=== PATIENT | female | born 1940 | race Caucasian/White ===

== ENCOUNTER 2024-06-26 01:40 | Emergency (ER) | payer OTHER, SELFPAY ==
[2024-06-26 01:51] VITALS: BP 160/99; BMI 30.9
--- NOTE | 2024-06-26 03:05 | ED.GENMED ---
History of Present Illness
General
Chief Complaint: Swelling
Source: patient
Exam Limitations: none
Time Seen by Provider: 06/26/24 02:35
Nursing documentation reviewed up to this point in time: agreed with
History of Present Illness
History of Present Illness:
This is an 83-year-old woman who has history of hypertension, hyperlipidemia, hypothyroidism, chronic bilateral lower extremity edema. She underwent right total hip replacement on June 20 at [facility]. Returned home the
following day June 21 and has been receiving physical therapy at home with initial visit June 22 and then again June 24. Patient notes increase in bilateral lower extremity edema right leg greater than left and she was
concerned tonight when she noticed some dark purple and red bruising to her right anterior knee and right anterior lateral lower leg after taking her compression stockings off this evening. She has had mild right hip pain but overall postop pain
has been well-controlled. She denies cough nor shortness of breath, no chest pain or palpitations, no abdominal nor back pain.
She has not had a fall.
She does note chronic bilateral lower extremity edema but no history of CAD nor CHF nor pulmonary hypertension.
She has been taking full-strength aspirin twice daily for DVT prophylaxis postop.
Past History
Past History
ED Past Medical History: GERD, HTN, Hypercholesterolemia, Hypothyroidism and Other; Negative IDDM or NIDDM
ED Past Surgical History: Cholecystectomy, Gynecological (Hysterectomy) and Orthopedic (Right total hip replacement May 2024)
Social History
Tobacco: Non-smoker
Alcohol: None
Personal:
Living: with family
Employment: Retired
Family History
Family History: Other (Father with NC at 54 mother with coronary disease at 78)
Phy Exam
Physical Exam
Physical Exam:
GENERAL: 83-year-old woman appears her stated age, awake and alert, pleasant, appears in no acute distress.
EYE: anicteric
NECK: Supple, nontender, no meningismus, no significant adenopathy. No JVD.
ENT: oral mucosa is moist. No rhinorrhea.
CARDIAC: Regular rate and rhythm. no murmur.
LUNGS: Clear breath sounds bilaterally, no acute respiratory distress, no wheezes/rales/rhonchi
ABDOMEN: Soft, nondistended, without focal tenderness, no r/g, no cvat. normoactive BS.
NEUROLOGICAL: Alert and oriented x3, no focal neuro deficits.
SKIN: Warm and dry, normal color, right anterolateral proximal thigh surgical dressing is dry and intact.
MUSCULOSKELETAL: There is +4 pitting edema globally to the bilateral lower extremities. There is dark purple ecchymotic patch right anterior knee that extends to the anterolateral lower leg. There are few tiny intact vesicles right anterior lower
leg. No palpable heat. No palpable tenderness to the knee nor lower leg. Mild tenderness about the right hip. Peripheral pulses are full and equal b/l.
PSYCH: Normal and appropriate interaction.
Scores
Heart Failure Risk
Heart Failure Risk Score: Not Applicable
Course
Orders/Labs/Results
Orders:
Orders
06/26/24 02:44
US Periph Venous LOWER Ext Agusto Urgent
Comment:
Reason For Exam: post op b/l LE edema R>L
Vital Signs
Initial and Last Documented VS:
Initial Vital Signs
Temp Pulse Resp BP Pulse Ox
98.3 F 84 16 160/99 98
06/26/24 01:51 06/26/24 01:51 06/26/24 01:51 06/26/24 01:51 06/26/24 01:51
Last Documented Vital Signs
Temp Pulse Resp BP Pulse Ox
98.3 F 84 16 160/99 98
06/26/24 01:51 06/26/24 01:51 06/26/24 01:51 06/26/24 01:51 06/26/24 01:51
MDM/Problems Addressed
Differential Diagnosis Includes:
Patient presents with significant bilateral lower extremity edema that appears somewhat chronic such as lymphedema in nature which may be exacerbated by recent postop right total hip replacement.
As she is recently postop must consider DVT thus will check DVT study bilateral lower extremities.
Ecchymosis right lower leg is postop in nature. She has not had a fall. Overall appears comfortable, denies increase in pain.
Nothing in history nor exam to suggest acute blood loss/symptomatic anemia and nothing to suggest acute bleeding.
Will check DVT study and if negative will plan for compression stockings bilateral lower extremities.
Chronic conditions affecting care: Other (Chronic edema/lymphedema bilateral lower extremities)
*Radiology
Radiology exam reviewed: other (Venous Doppler bilateral lower extremities negative for DVT. Large All's cyst posterior popliteal on the left.)
*Pulse Oximetry
Patient hypoxic: no
*Critical Care Note
Total Time (30-74mins, 75-104mins- exclusive of procedures): Not Applicable
ED Attending Note
-
Portions of this chart may have been created with voice recognition software.� Occasional wrong word or��sound alike� substitutions may have occurred due to the inherent limitations of voice recognition software.
Discharge Plan
Departure
Patient Disposition: Home (Routine Discharge)
Date of Disposition: 06/26/24
Time of Disposition: 04:20
Patient with high blood pressure during this ER visit?: No
Condition: Good
Discharge Problem:
postoperative peripheral edema
Instructions: Swelling, Lymphedema (DC)
Prescriptions:
No Action
potassium chloride 10 MEQ capsule, extended release
10 meq PO DAILY
nifedipine 30 MG tablet extended release
30 mg PO DAILY
levothyroxine 100 MCG tablet
75 mcg PO DAILY
atenolol 50 MG tablet
50 mg PO DAILY
cholecalciferol (vitamin D3) 2,000 UNITS tablet
1,000 unit PO DAILY
atenolol 25 MG tablet
25 mg PO DAILY
Benefiber Sugar Free (dextrin) 1 EACH powder in packet
1 ea PO DAILY PRN (Reason: cibstuoatuib)
pantoprazole 40 MG tablet,delayed release (DR/EC)
40 mg PO BID Qty: 20 0RF
tramadol 50 mg Tablet
50 mg PO Q4HPRN PRN (Reason: moderate pain)
acetaminophen 650 mg Tablet Extended Release
650 mg PO Q8H
docusate sodium 100 mg Capsule
100 mg PO BID
aspirin [Aspirin Childrens] 81 mg Tablet,Chewable
81 mg PO BID
gabapentin 100 mg Capsule
200 mg PO HS
alum-mag hydroxide-simeth 200-200-20 mg/5 mL Suspension
30 ml PO Q4HPRN PRN (Reason: dyspepsia)
oxycodone 5 mg Tablet
5 mg PO Q4H PRN (Reason: severe pain)
celecoxib 100 MG capsule
200 mg PO DAILY
Referrals:
UNKNOWN - PT DOES,NOT KNOW [Family Provider] -
Interventions
Interventions:
*Risk Screen - Suicide Last Done: 06/26/24 04:37
*General Assessment Last Done: 06/26/24 01:51
*Neglect/Abuse Screening Last Done: 06/26/24 01:51
ED- Fall Risk Assessment Last Done: 06/26/24 03:00
*ED COVID-19 Vaccine History Last Done: 06/26/24 01:51
*Nursing Disposition Last Done: 06/26/24 04:37
ED- Cardiac Assessment Last Done: 06/26/24 03:00
ED- Pulmonary Assessment Last Done: 06/26/24 03:00
ED-Skin Assessment Last Done: 06/26/24 03:00
Discharge Date and Time
Discharge Date/Time: 06/26/24 04:38
Print Language: IRANIAN
--- NOTE | 2024-06-26 04:35 | EDRN ---
Placed elastic support bandage on both legs to help with swelling per Dr. Riley murphy
== END 2024-06-26 04:38 | disposition home or self-care (01) ==
LOC: EMR 01:40
PROVIDERS: EMERGENCY PHYSICIAN Emergency Medicine
DX: R60.0 Localized edema (principal); E03.9 Hypothyroidism, unspecified; I10 Essential (primary) hypertension; E78.5 Hyperlipidemia, unspecified; K21.9 Gastro-esophageal reflux disease without esophagitis; Z96.641 Presence of right artificial hip joint
CPT/HCPCS: 99284; 93970

== ENCOUNTER 2024-11-26 14:06 | Inpatient (IN) | payer OTHER, SELFPAY ==
[2024-11-26] VITALS (12 sets, daily range): BP systolic 145–173; BP diastolic 70–91; BMI 32.6; BMI 31.0
[2024-11-26 08:58] LABS: COVID-19 Antigen Negative (Negative)
--- NOTE | 2024-11-26 09:26 | ED.GENMED ---
History of Present Illness
General
Chief Complaint: Breathing Problem
Source: patient
Exam Limitations: none
Time Seen by Provider: 11/26/24 09:26
Nursing documentation reviewed up to this point in time: agreed with
History of Present Illness
History of Present Illness:
84-year-old female with history of GERD, HLD, HTN states she has had upper respiratory symptoms of sinus stuffiness, cough, congestion, poor appetite, temperature max of 100.4 over the past week but in the last 2 days she has had more difficulty
breathing with wheezing. Denies N/V/D/C. Family members with similar symptoms. She denies chest pain
Past History
Past History
ED Past Medical History: GERD, HTN, Hypercholesterolemia, Hypothyroidism and Other; Negative IDDM or NIDDM
ED Past Surgical History: Cholecystectomy, Gynecological (Hysterectomy) and Orthopedic (Right total hip replacement May 2024)
Social History
Tobacco: Non-smoker
Alcohol: None
Personal:
Living: with family
Employment: Retired
Family History
Family History: Other (Father with NC at 54 mother with coronary disease at 78)
Review of Systems
Review of Systems
Allergies reviewed?: Yes
All Other Systems: ROS reviewed and negative except as documented in HPI and ROS
Constitutional: Denies fever or chills
EENT: Denies sore throat
Respiratory: Reports cough and trouble breathing
Cardiac: Denies chest pain
ABD/GI: Denies abdominal pain, nausea, vomiting or diarrhea
: Denies dysuria, frequency or difficulty voiding
Musculoskeletal: Reports no symptoms
Skin: Reports no symptoms
Neurological: Reports no symptoms
Phy Exam
Physical Exam
Physical Exam:
GENERAL: No acute distress. A&Ox3.
CONSTITUTIONAL: Afebrile.
EYES: clear, conjunctivae normal
ENMT: moist mucus membranes
RESPIRATORY: Regular respirations, nonlabored, lungs with expiratory wheezes throughout.
CARDIOVASCULAR: Regular rate and rhythm, no murmurs, no rubs.
GI: Soft, nontender, normal BS
MUSCULOSKELETAL: Moves with ease. Well perfused.
SKIN: Warm, dry, pink
PSYCH: Normal mood and affect. Well kept, interactive and appropriate
NEUROLOGIC: Awake, alert and oriented. No focal neurological deficits
Scores
Heart Failure Risk
Heart Failure Risk Score: Not Applicable
Course
Orders/Labs/Results
Orders:
Orders
11/26/24 08:37
COVID-19 Antigen Urgent
Source: Nasal Swab
Influenza A+B Rapid Molecular Urgent
CAR[place] Source: Nasal Swab
Specimen Description:
11/26/24 09:04
CR Chest - 2 Views Urgent
Comment:
Reason For Exam: cough, wheezing
11/26/24 09:26
Ipratropium/Albuterol Sulfate [Duoneb] 3 ml INH R NOW STA
11/26/24 10:17
Dexamethasone [Decadron] 10 mg PO NOW STA
11/26/24 11:49
Ipratropium/Albuterol Sulfate [Duoneb] 3 ml INH R NOW STA
11/26/24 12:45
Complete Blood Count/With Diff Urgent
Comprehensive Metabolic Panel Urgent
11/26/24 13:34
* Blood Bank Products Urgent
Blood Bank Products: *Packed RBC Leuko(PRBC's)
Quantity: 1
Transfuse Today: Yes
Reason: Anemia
IV Insert/Care/Rem.- Treatment PRN
11/26/24 13:48
Admit/Transfer Patient As Directed
Co-Sign Provider:
Level of Care: Inpatient admission
Assign to:: Telemetry
Physician / Group: Hospitalist
Diagnosis: Respiratory distress
Reason for Telemetry: Chest Pain syndromes
Date to Stop Telemetry: 11/28/24
Time to Stop Telemetry: 11:00
Reason for Hospitalization: Respiratory distress
Expected length of stay greater than two midnights?: Yes
ELOS- Estimated Length of Stay in days: 5
I certify the patient meets the requirements for IP care: Yes
PRN Pain Medication Management As Directed
May give lesser potent ordered pain med per pt: Yes
preference::
Protocol:: Medication orders for pain may be administered in a
manner that supports deferring to patient preference
when the pt is:
- Requesting an ordered lesser potent pain medication.
Least to most potent pain medications are defined
as: acetaminophen < NSAID < tramadol < opioids
(morphine, oxycodone, hydromorphone).
- Requesting a lesser dose of the same medication IF
ORDERED.
- Requesting a less intrusive route of administration
if both routes are prescribed by the provider (PO <
IV).
11/26/24 13:51
Code Status As Directed
Resuscitation Status: Do not resuscitate
Reached after discussion with pt or family/Healthcare POA: Yes
Decision communicated with: patient and daughter at bedside
DNR Bracelet Application ONCE
11/26/24 13:58
Type+Screen Urgent
11/28/24 11:00
DC Protocol for Telemetry ONCE
Abnormal Lab Results
11/26/24 11/26/24
12:45 13:58
RBC 3.31 L 10^6/uL
(4.20-5.40)
Hgb 6.7 L* g/dL
(12.0-16.0)
Hct 24.0 L %
(37.0-47.0)
MCV 72.5 L fL
(81.0-99.0)
MCH 20.2 L pg
(27.0-31.0)
MCHC 27.9 L g/dL
(33.0-37.0)
RDW 20.3 H %
(11.5-14.5)
Absolute Lymphs (auto) 3.7 H 10^3/uL
(1.2-3.4)
Glucose 112 H mg/dl
(70-99)
Crossmatch IS Only See Detail
11/26/24 12:45
11/26/24 12:45
Vital Signs
Initial and Last Documented VS:
Initial Vital Signs
Temp Pulse Resp BP Pulse Ox
98.0 F 75 18 163/91 98
11/26/24 08:30 11/26/24 08:30 11/26/24 08:30 11/26/24 08:30 11/26/24 08:30
Last Documented Vital Signs
Temp Pulse Resp BP Pulse Ox
98.0 F 75 18 163/91 98
11/26/24 08:30 11/26/24 08:30 11/26/24 08:30 11/26/24 08:30 11/26/24 08:30
MDM/Problems Addressed
Differential Diagnosis Includes:
Bronchitis, COVID, flu, pneumonia
Add anemia
MDM/Problems Addressed:
84-year-old female with history of GERD, HLD, HTN states she has had upper respiratory symptoms of sinus stuffiness, cough, congestion, poor appetite, temperature max of 100.4 over the past week but in the last 2 days she has had more difficulty
breathing with wheezing. Denies N/V/D/C. Family members with similar symptoms. She denies chest pain
Afebrile, NAD lungs with wheezes throughout
. No hypoxemia
COVID-negative
Flu negative
CXR radiology report read: IMPRESSION:
1. No radiographic evidence for pneumonia, acute pulmonary edema, or pleural effusion.
2. Mild elevation of the anterior right hemidiaphragm which appears unchanged.
3. Severe tortuosity of the thoracic aorta which appears unchanged.
4. Moderate-sized paraesophageal hiatal hernia which appears unchanged.
Will treat for bronchitis/atypical PNA
11:45 a.m.
After duoneb, still with significant wheezing throughout. Duoneb #2 ordered.
Rx for albuterol inhaler, prednisone taper and a azithromycin sent to her pharmacy
12:58 PM:
Patient continues to wheeze throughout her lungs after second DuoNeb.
Plan: Admit: Bronchitis/atypical pneumonia
Hospitalist notified of admission.
Labs pending
1:20 p.m.
CBC: Hgb 6.7 at least partially chronic, no stool in rectal vault, mucus on gloved finger hematest neg, pt denies change in color of stools
*Critical Care Note
Total Time (30-74mins, 75-104mins- exclusive of procedures): Not Applicable
ED Attending Note
-
Portions of this chart may have been created with voice recognition software.� Occasional wrong word or��sound alike� substitutions may have occurred due to the inherent limitations of voice recognition software.
Discharge Plan
Departure
Patient Disposition: Admit
Date of Disposition: 11/26/24
Time of Disposition: 12:55
Admit to: Med/Surg
Presentation/result/management discussed w/ accepting MD/DO: Hospitalist
Condition: Fair
Covid-19: Negative COVID-19
Discharge Problem:
Acute bronchitis
Interventions
Interventions:
*Risk Screen - Suicide Last Done: 11/26/24 08:30
*General Assessment Last Done: 11/26/24 11:55
*Neglect/Abuse Screening Last Done: 11/26/24 08:30
ED- Fall Risk Assessment Last Done: 11/26/24 14:05
*ED COVID-19 Vaccine History Last Done: 11/26/24 11:55
ED- Cardiac Assessment Last Done: 11/26/24 14:05
ED- Pulmonary Assessment Last Done: 11/26/24 14:10
[2024-11-26] MEDS: DUONEB 3 ML INH ×4 (11:10→19:49)
[2024-11-26] MEDS: DECADRON 10 MG PO (11:10)
[2024-11-26 13:07] LABS: % Basophils 0.3 % (0-2); % Eosinophils 2.3 % (0-6); % Immature Granulocytes 0.5 % (0-0.5); % Lymphocytes 46.4 % (20.5-51.1); % Monocytes 4.5 % (1.7-9.3); Absolute Eosinophils 0.2 10^3/uL (0-0.7); Absolute Lymphocytes 3.7 10^3/uL (1.2-3.4); Absolute Monocytes 0.4 10^3/uL (0.1-0.6); Absolute Neutrophils 3.7 10^3/uL (1.4-6.5); Hemoglobin 6.7 g/dL (12.0-16.0); Mean Corp Hgb Conc. 27.9 g/dL (33.0-37.0); Mean Corpuscular Hgb 20.2 pg (27.0-31.0); Mean Corpuscular Volume 72.5 fL (81.0-99.0); Mean Platelet Volume 9.7 fL (7.4-10.4); Platelet Count 265 10^3/uL (130-400); Red Blood Cell Count 3.31 10^6/uL (4.20-5.40); Red Cell Dist. Width 20.3 % (11.5-14.5)
--- NOTE | 2024-11-26 13:16 | HPS.HSE ---
Family Physician
-
Family Physician: Alexander Benitez
Chief Complaint
-
cough
History of Present Illness
84-year-old woman with history of GERD, HLD, HTN states she has had upper respiratory infection symptoms of sinus stuffiness, cough, congestion, poor appetite, and a temperature max of 100.4 over the past week. Other family members have had the
Flu. In the last 2 days she has had more difficulty breathing with wheezing. Denies N/V/D/C. Family members with similar symptoms. She denies chest pain. CXR in ER showed:
1. No radiographic evidence for pneumonia, acute pulmonary edema, or pleural effusion.
2. Mild elevation of the anterior right hemidiaphragm which appears unchanged.
3. Severe tortuosity of the thoracic aorta which appears unchanged.
4. Moderate-sized paraesophageal hiatal hernia which appears unchanged.
Medical History
Past Medical History
Past Medical History: Reports Other
Additional Past Medical History:
GERD
Hypothyroidism
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
depression
essential hypertension
hypokalemia
chronic kidney disease
dilation of aorta
wisdom teeth extraction
Cholecystectomy
hysterectomy
bunionectomy
cataract 2x
mohs surgery
Past Surgical History: Reports Other
Additional Past Surgical History:
See above
Social History
Tobacco: Non-smoker
Alcohol: None
Drug: None
Living: Alone
Employment: Retired
Family History
Family History: Not pertinent
Allergies / Home Medications
Allergies reflects when Allergies were last updated in [employer].
Home Medications with original date entered in [employer]
Allergy/Medication List:
Allergies
Allergy/AdvReac Type Severity Reaction Status Date / Time
No Known Allergies Allergy Verified 06/26/24 01:58
Home Medications
atenolol 50 mg tablet 50 mg PO DAILY 12/20/15
cholecalciferol (vitamin D3) 50 mcg (2,000 unit) tablet 1,000 unit PO DAILY 12/20/15
levothyroxine 100 mcg tablet 75 mcg PO DAILY 12/20/15
nifedipine 30 mg tablet,extended release 30 mg PO DAILY 12/20/15
potassium chloride 10 mEq capsule,extended release 10 meq PO DAILY 12/20/15
atenolol 25 mg tablet 25 mg PO DAILY 03/25/22
pantoprazole 40 mg tablet,delayed release 40 mg PO BID #20 tabs 03/25/22
wheat dextrin 3 gram/4 gram oral powder packet (Benefiber Sugar Free (dextrin)) 1 ea PO DAILY PRN cibstuoatuib 03/25/22
acetaminophen 650 mg tablet,extended release 650 mg PO Q8H 06/26/24
aluminum-mag hydroxide-simethicone 200 mg-200 mg-20 mg/5 mL oral susp 30 ml PO Q4HPRN PRN dyspepsia 06/26/24
aspirin 81 mg chewable tablet (Aspirin Childrens) 81 mg PO BID 06/26/24
celecoxib 100 mg capsule 200 mg PO DAILY 06/26/24
docusate sodium 100 mg capsule 100 mg PO BID 06/26/24
gabapentin 100 mg capsule 200 mg PO HS 06/26/24
oxycodone 5 mg tablet 5 mg PO Q4H PRN severe pain 06/26/24
tramadol 50 mg tablet 50 mg PO Q4HPRN PRN moderate pain 06/26/24
Review of Systems
-
History Source: Patient
A 12 point ROS was completed and negative except as noted: Yes
Physical Exam
Vital Signs
Vital Signs
Temp Pulse Resp BP Pulse Ox
98.0 F 75 18 163/91 98
11/26/24 08:30 11/26/24 08:30 11/26/24 08:30 11/26/24 08:30 11/26/24 08:30
Physical Exam
General: Well Developed, Well Nourished, No Apparent Distress, Comfortable and Conversant
HEENT: Moist mucous membranes, Atraumatic, Nose Appears Normal and Ears Appear Normal
Respiratory: Wheezes and Rhonchi
Cardiac: S1/S2 and Regular Rhythm
GI: Soft, Non Tender and Non Distended
Musculoskeletal: No Clubbing, No Cyanosis, Edema, Left Lower Extremity and Edema, Right Lower Extremity
Skin: Warm and Dry
Neuro: Awake, Alert, Oriented and AO x 3
Psych: Calm
Laboratory Results
-
11/26/24 12:45
Data Reviewed
-
Lab Data: Labs Reviewed by me
Impression/Plan
-
IMPRESSION:
84 woman with respiratory symptoms. Covid (-), Flu (-), unexpected anemia.
PLAN:
1. Respiratory symptoms, likely from viral infection, bronchitis vs atypical pneumonia
Steroids
(add GI protection)
Nebs
Antibiotics
Resp culture
2. Severe anemia, cause not known, Hgb < 7.0.
ER transfusing one unit PRBC
Check H/H daily
Investigate source (MCV low)
Iron studies
3. High risk for cardiac supply/demand mismatch
Check ECG
Check troponin
Telemetry
4. Chronic medical history of:
GERD
Hypothyroidism
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
depression
essential hypertension
hypokalemia
chronic kidney disease
dilation of aorta
wisdom teeth extraction
Cholecystectomy
hysterectomy
bunionectomy
cataract 2x
mohs surgery
Continue home meds for these
Code: DNR
SCD for DVTP
[2024-11-26 13:27] LABS: ALT (SGPT) 10 U/L (0-35); AST (SGOT) 27 U/L (14-36); Albumin 4.7 g/dl (3.5-5.0); Alkaline Phosphatase 72 U/L (38-126); Blood Urea Nitrogen 11 mg/dl (7-17); Calcium 8.8 mg/dl (8.4-10.2); Carbon Dioxide 26 mmol/L (22-30); Chloride 100 mmol/L (98-107); Estimated Creatinine Clearance 47 ml/min; Glucose 112 mg/dl (70-99); Potassium 3.5 mmol/L (3.5-5.1); Sodium 138 mmol/L (135-145); Total Bilirubin 0.8 mg/dl (0.2-1.3); Total Protein 7.9 g/dl (6.3-8.2); eGFR > 60.00
--- NOTE | 2024-11-26 17:24 | PTCARENOTE ---
Pt arrived from ED to room 318-1, she has blood transfusing, panel monitor applied and RN handoff completed, pt aao x3, able to ambulate to bed from stretcher at the doorway.
[2024-11-26] MEDS: TYLENOL 650 MG PO ×2 (17:52→21:51)
[2024-11-26] MEDS: ZITHROMAX INFUSION 250 IV (17:52)
[2024-11-26 19:33] LABS: Total Iron Binding Capacity 451 ug/dl (265-497)
[2024-11-26 20:00] LABS: Ferritin 8.9 ng/ml (11.1-264.0)
[2024-11-26] MEDS: DELTASONE 40 MG PO (20:07)
[2024-11-26] MEDS: MUCINEX 600 MG PO (20:07)
[2024-11-26] MEDS: ULTRAM 50 MG PO (21:51)
[2024-11-26 23:04] LABS: Troponin I 0.066 ng/ml
--- NOTE | 2024-11-26 23:25 | PTCARENOTE ---
Troponin result TT to MESSI Eldridge. Plan of care ongoing.
[2024-11-27] VITALS (9 sets, daily range): BP systolic 123–152; BP diastolic 66–80
[2024-11-27] MEDS: DUONEB 3 ML INH ×5 (03:48→19:29)
[2024-11-27] MEDS: SYNTHROID 75 MCG PO (05:17)
[2024-11-27 06:28] LABS: Hematocrit 24.4 % (37.0-47.0); Mean Corp Hgb Conc. 28.7 g/dL (33.0-37.0); Mean Corpuscular Hgb 21.2 pg (27.0-31.0); Mean Corpuscular Volume 73.9 fL (81.0-99.0); Platelet Count 247 10^3/uL (130-400); White Blood Cell Count 6.7 10^3/uL (4.8-10.8)
[2024-11-27 06:38] LABS: Troponin I 0.064 ng/ml
[2024-11-27 06:51] LABS: Blood Urea Nitrogen 10 mg/dl (7-17); Calcium 8.7 mg/dl (8.4-10.2); Carbon Dioxide 24 mmol/L (22-30); Chloride 99 mmol/L (98-107); Estimated Creatinine Clearance 53 ml/min; Glucose 175 mg/dl (70-99); Potassium 3.9 mmol/L (3.5-5.1); Sodium 137 mmol/L (135-145); eGFR > 60.00
[2024-11-27] MEDS: PROCARDIA XL (EXTENDED RELEASE) 30 MG PO (07:54)
[2024-11-27] MEDS: PROTONIX 40 MG PO (07:54)
[2024-11-27] MEDS: KCL 10 MEQ PO (07:54)
[2024-11-27] MEDS: MUCINEX 600 MG PO ×2 (07:55→20:25)
[2024-11-27] MEDS: TYLENOL 650 MG PO ×3 (07:55→22:00)
[2024-11-27] MEDS: DELTASONE 40 MG PO ×2 (07:55→20:25)
[2024-11-27] MEDS: LIPITOR 10 MG PO (07:56)
[2024-11-27] MEDS: TENORMIN 75 MG PO (07:59)
[2024-11-27 09:29] LABS: Absolute Neutrophils -Man Diff 4.8 10^3/uL (1.4-6.5); Atypical Lymphocytes 2 %; Band Neutrophils 2 % (0-3); Lymphocytes 18 % (20-51); Metamyelocytes 2 % (-); Monocytes 4 % (2-9); Myelocytes 2 % (-); Normal RBC Morphology No; Platelets Checked Yes; Segmented Neutrophils 70 % (42-75)
[2024-11-27 09:30] LABS: Anisocytosis 1+; Hypochromasia 2+; Microcytosis 2+; Stomatocytes 1+; Target Cells 1+; Total Cells Counted 100
[2024-11-27 10:21] LABS: Troponin I 0.066 ng/ml
--- NOTE | 2024-11-27 10:55 | W.PN.HOSP.TC ---
Today's Communication/Plan
-
Order EKG
Follow-up with GI recommendations
Order echocardiogram
Assessment / Plan
Assessment / Plan
Physical Exam
General: Well Developed, Well Nourished, No Apparent Distress, Comfortable and Conversant
HEENT: Moist mucous membranes, Atraumatic, Nose Appears Normal and Ears Appear Normal
Respiratory: Wheezes and Rhonchi
Cardiac: S1/S2 and Regular Rhythm
GI: Soft, Non Tender and Non Distended
Musculoskeletal: No Clubbing, No Cyanosis, Edema, Left Lower Extremity and Edema, Right Lower Extremity
Skin: Warm and Dry
Neuro: Awake, Alert, Oriented and AO x 3
Psych: Calm
# Mild acute cough, likely acute bronchitis
No hypoxia
No fever
No leukocytosis. Okay to do short course, 3 days of Zithromax. Continue with the Mucinex continue as needed DuoNeb.
Chest radiography with no evidence of pneumonia or pulmonary congestion.
She feels better now
# Suspect chronic blood loss anemia
Hemoglobin around 6 upon admission. History of recent hip replacement but no anemia or GI bleeding. Never had colonoscopy. She denied melena although she did not observe color of her stool. She reports nonspecific GI symptoms as early satiety,
nausea, postprandial abdominal discomfort but attributed that to her underlying diagnosis of irritable bowel syndrome
Status post 1 unit of tract transfusion.
Positive occult blood in the stool upon rectal examination
She is agreeable to be evaluated by GI and if she needs colonoscopy
Consulted GI, appreciate input
#Positive troponin 0.66 with no increment. No chest pain. Suspect of no clinical significance. No chest pain. Ordered EKG and echocardiogram.
# Chronic medical history of:
GERD
Hypothyroidism
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
depression
essential hypertension
hypokalemia
chronic kidney disease
dilation of aorta
wisdom teeth extraction
Cholecystectomy
hysterectomy
bunionectomy
cataract 2x
mohs surgery
Continue home meds for these
Code: DNR
SCD for DVTP
Total time spent to see the patient, examine the patient, review data and lab results, discuss treatment plan with patient and nursing staff around 55 minutes
Anticipated Discharge: > 48 hours
Subjective/Interval History
-
Date of Service: November 27, 2024
Mild abd discomfort after eating
No fever
No chest pain
Objective Data
-
Labs:
Laboratory Results
11/27/24
05:32
WBC 6.7
Hgb 7.0 L
Hct 24.4 L
Plt Count 247
Sodium 137
Potassium 3.9
Chloride 99
Carbon Dioxide 24
BUN 10
Creatinine 0.6
Glucose 175 H
Calcium 8.7
Vital Signs:
Vital Signs
Temp Pulse Resp BP Pulse Ox
98.0 F 76 18 152/70 96
11/27/24 07:05 11/27/24 07:22 11/27/24 07:22 11/27/24 07:05 11/27/24 07:22
I&O
11/26/24 11/27/24 11/28/24
06:59 06:59 06:59
Intake Total 730 / 730
Balance 730 / 730
--- NOTE | 2024-11-27 15:33 | CON.GI ---
Addendum entered and electronically signed by July Mcghee MD 11/27/24 19:48:
I saw and examined the patient.
The PA's note was reviewed and I agree with the note.
-- acute on chronic anemia . no baseline available to compare . as per patient she had anemia prior to her hip surgery last year. No overt GI bleeding. stool occult postive . No prior EGD/ Colonoscopy
-- admitted with acute bronchitis
plan
transfuse to keep Hb > 7
check serum iron. if low consider iron supplementation
had a long discussion about GI work up for anemia including EGD/ colon . will hold off on inpatient work up considering patient is currently being treated for acute bronchitis . Patient is interested in pursuing GI work up as outpatient once
recovered from her acute illness ( optimization of respiratory status ).
Will advice her to follow up with us as outpatient . message sent to office .
will s/o. Please call us back if any questions
Original Note:
Consultation
-
Date/Time Consultation Requested: 11/27/24 1000
Date/Time Consultation Performed: 11/27/24 1500
Requesting Provider: Dr. Hamilton
Performing Provider: Dr. Mcghee / Gladys Rutherford PA-C
Reason for Consultation: anemia
Medical History
Chief Complaint / HPI
Chief Complaint: anemia
History of Present Illness:
This is an 84 year old female with a past medical history of GERD, HTN, CKD, hypothyroidism and hyperlipidemia who presents to the ER with worsening URI symptoms and was noted to be anemic with hemoglobin of 6.7 in the ER. She received 1 unit of
PRBCs. She denies any black or bloody stools. No abdominal pain. She had surgery in May 2024 (right hip replacement) and does note that labs done by her PCP at that time showed a mild anemia. She otherwise denies a history of anemia. Patient has
never had an endoscopy or colonoscopy. She does have chronic GERD, which has been well-controlled on pantoprazole. No dysphagia or odynophagia. She denies any nausea, vomiting, or recent unintentional weight loss. No recent change in bowel habits
but she does state she has had chronic 'IBS' since her 30's with alternating diarrhea/constipation as well as times with normal/formed bowel movements. There is no family history of colon cancer or any other GI malignancy.
Today's labs reveal Hgb increased to 7.0 and she received a second unit of PRBCs. Microcytic indices. Iron studies show low ferritin (8.9) and normal TIBC (451). Serum iron and %saturation were not done. She denies a prior history of iron deficiency
anemia.
Past Medical History
Past Medical History: GERD, HTN, Hypercholesterolemia and Hypothyroidism
Past Surgical History: Cholecystectomy and Other (hysterectomy, R hip replacement (05/2024))
Social History
Tobacco: Non-Smoker
Alcohol: None
Drug: None
Living: Alone
Employment: Retired
Family History
Family History: Other (No family history of GI malignancies)
Allergies / Home Medications
Allergy/AdvReac Type Severity Reaction Status Date / Time
No Known Allergies Allergy Verified 06/26/24 01:58
�Medication �Instructions �Recorded
nifedipine 30 mg tablet,extended 30 mg PO DAILY Blood Pressure 12/20/15
release
potassium chloride 10 mEq 10 meq PO DAILY Electrolyte 12/20/15
capsule,extended release Repletion
atenolol 25 mg tablet 75 mg PO DAILY Blood Pressure 03/25/22
wheat dextrin 3 gram/4 gram oral 1 ea PO DAILY constipation 03/25/22
powder packet (Benefiber Sugar
Free (dextrin))
docusate sodium 100 mg capsule 100 mg PO DAILY Constipation 06/26/24
tramadol 50 mg tablet 50 mg PO DAILYPRN PRN moderate pain 06/26/24
acetaminophen 650 mg 650 mg PO TID Pain 11/26/24
tablet,extended release
levothyroxine 75 mcg tablet 75 mcg PO DAILY Thyroid 11/26/24
(Synthroid)
lovastatin 40 mg tablet 40 mg PO DAILY High Cholesterol 11/26/24
pantoprazole 40 mg tablet,delayed 40 mg PO DAILY Gastrointestinal 11/26/24
release Issue
jdnzokmtmfchx-ZE-khculuftuyldo-guaif 15 ml PO DAILYPRN PRN cough 11/26/24
5 mg-10 mg-325 mg-200mg/15 mL liq
(Tylenol Cold and Flu Severe)
Review of Systems
-
History Source: Patient
All other systems: A 12 pt ROS was Negative except as stated above in HPI
Vital Signs
Temp Pulse Resp BP Pulse Ox
98.1 F 76 18 124/71 96
11/27/24 15:01 11/27/24 15:13 11/27/24 15:13 11/27/24 15:01 11/27/24 15:13
Physical Exam
Exam
General: Well Developed, Well Nourished and No Apparent Distress
Respiratory: Wheezes
Cardiac: Regular Rhythm
GI: Soft, Non Tender, Non Distended and Normal Bowel Sounds
Rectal: Other (heme positive black stool per report)
Skin: Warm and Dry
Neuro: AO x 3
Psych: Calm
Results
WBC 6.7 10^3/uL (4.8-10.8) 11/27/24 05:32
Hgb 7.0 g/dL (12.0-16.0) L 11/27/24 05:32
Hct 24.4 % (37.0-47.0) L 11/27/24 05:32
MCV 73.9 fL (81.0-99.0) L 11/27/24 05:32
Plt Count 247 10^3/uL (130-400) 11/27/24 05:32
Absolute Neuts (auto) 3.7 10^3/uL (1.4-6.5) 11/26/24 12:45
Sodium 137 mmol/L (135-145) 11/27/24 05:32
Potassium 3.9 mmol/L (3.5-5.1) 11/27/24 05:32
Chloride 99 mmol/L (98-107) 11/27/24 05:32
Carbon Dioxide 24 mmol/L (22-30) 11/27/24 05:32
BUN 10 mg/dl (7-17) 11/27/24 05:32
Creatinine 0.6 mg/dL (0.6-1.0) 11/27/24 05:32
Calcium 8.7 mg/dl (8.4-10.2) 11/27/24 05:32
Total Bilirubin 0.8 mg/dl (0.2-1.3) 11/26/24 12:45
AST 27 U/L (14-36) 11/26/24 12:45
ALT 10 U/L (0-35) 11/26/24 12:45
Alkaline Phosphatase 72 U/L (38-126) 11/26/24 12:45
Diagnostic Image Results:
CXR 11/26/24:
1. No radiographic evidence for pneumonia, acute pulmonary edema, or pleural effusion.
2. Mild elevation of the anterior right hemidiaphragm which appears unchanged.
3. Severe tortuosity of the thoracic aorta which appears unchanged.
4. Moderate-sized paraesophageal hiatal hernia which appears unchanged.
Prior GI Procedures:
EGD: Never
Colonoscopy: Never
Assessment / Plan
-
Nicky is an 84 year old female admitted with acute bronchitis with anemia noted to be 6.7 on presentation to the ER. No black or bloody stools and she denies any abdominal pain, nausea, vomiting or change in bowel habits from baseline. S/p 2 units
PRBCs. She has never had EGD or colonoscopy. Patient is currently feeling weak with respiratory complaints of cough, shortness of breath and does not wish to undergo endoscopic procedures now. She is willing to consider possible outpatient
EGD/colonoscopy.
IMPRESSION / PLAN:
Anemia, microcytic
- Hgb 6.7 on admission, s/p transfusion with 2 units PRBCs
- continue to trend Hgb, transfuse if Hgb falls below 7.0
- low ferritin, normal TIBC. Will order serum iron for full iron studies panel
- to consider outpatient EGD/colonoscopy once optimized from a respiratory standpoint and she has recovered from current bronchitis/URI - follow-up outpt with GI in 4 weeks for workup of the anemia
-
-
Thank you for consultation and allowing me to participate in the patient's care. Please call the process control operator GI physician during the after hours with any questions or concerns.
[2024-11-27] MEDS: ZITHROMAX INFUSION 250 IV (17:29)
[2024-11-27 18:31] LABS: Iron 22 ug/dl (37-170)
[2024-11-27] MEDS: ULTRAM 50 MG PO (22:00)
[2024-11-28 03:25] VITALS: BP 152/88
[2024-11-28] MEDS: SYNTHROID 75 MCG PO (05:21)
[2024-11-28 05:26] VITALS: BMI 31.3
[2024-11-28] MEDS: DUONEB 3 ML INH (05:34)
[2024-11-28] MEDS: PROTONIX 40 MG PO (07:23)
[2024-11-28 07:49] VITALS: BP 174/85
[2024-11-28 08:04] LABS: Blood Urea Nitrogen 15 mg/dl (7-17); Calcium 9.4 mg/dl (8.4-10.2); Carbon Dioxide 26 mmol/L (22-30); Chloride 98 mmol/L (98-107); Estimated Creatinine Clearance 46 ml/min; Glucose 129 mg/dl (70-99); Potassium 4.4 mmol/L (3.5-5.1); Sodium 136 mmol/L (135-145); eGFR > 60.00
[2024-11-28 08:27] LABS: Hematocrit 30.4 % (37.0-47.0); Hemoglobin 8.9 g/dL (12.0-16.0); Mean Corp Hgb Conc. 29.3 g/dL (33.0-37.0); Mean Corpuscular Hgb 21.9 pg (27.0-31.0); Mean Corpuscular Volume 74.7 fL (81.0-99.0); Mean Platelet Volume 9.6 fL (7.4-10.4); Platelet Count 247 10^3/uL (130-400); Red Blood Cell Count 4.07 10^6/uL (4.20-5.40); Red Cell Dist. Width 21.2 % (11.5-14.5)
[2024-11-28] MEDS: PROCARDIA XL (EXTENDED RELEASE) 30 MG PO (09:03)
[2024-11-28] MEDS: KCL 10 MEQ PO (09:03)
[2024-11-28] MEDS: TYLENOL 650 MG PO ×3 (09:04→21:03)
[2024-11-28] MEDS: LIPITOR 10 MG PO (09:04)
[2024-11-28] MEDS: TENORMIN 75 MG PO (09:04)
[2024-11-28] MEDS: MUCINEX 600 MG PO ×2 (09:04→21:03)
[2024-11-28] MEDS: DELTASONE PO (09:08)
[2024-11-28] MEDS: DELTASONE 30 MG PO (09:18)
[2024-11-28 11:02] VITALS: BP 135/75
--- NOTE | 2024-11-28 12:05 | W.PN.HOSP.TC ---
Today's Communication/Plan
-
Taper prednisone
CT chest, no pneumonia
IV Iron while in hospital.
Assessment / Plan
Assessment / Plan
Physical Exam
General: Well Developed, Well Nourished, No Apparent Distress, Comfortable and Conversant
HEENT: Moist mucous membranes, Atraumatic, Nose Appears Normal and Ears Appear Normal
Respiratory: less Wheezes and Rhonchi
Cardiac: S1/S2 and Regular Rhythm
GI: Soft, Non Tender and Non Distended
Musculoskeletal: No Clubbing, No Cyanosis, Edema, Left Lower Extremity and Edema, Right Lower Extremity
Skin: Warm and Dry
Neuro: Awake, Alert, Oriented and AO x 3
Psych: Calm
# Mild acute cough, likely acute bronchitis
No hypoxia
No fever
No leukocytosis. Okay to do short course, 3 days of Zithromax. Change to oral. Continue with the Mucinex continue as needed DuoNeb.
Chest radiography with no evidence of pneumonia or pulmonary congestion.
CT chest no PNA
Taper oral prednisone.
She feels better now
# Suspect chronic blood loss anemia/iron deficiency anemia
Hemoglobin around 6 upon admission. History of recent hip replacement but no anemia or GI bleeding. Never had colonoscopy. She denied melena although she did not observe color of her stool. She reports nonspecific GI symptoms as early satiety,
nausea, postprandial abdominal discomfort but attributed that to her underlying diagnosis of irritable bowel syndrome
Status post 1 unit of tract transfusion. Started IV iron while in the hospital.
Positive occult blood in the stool upon rectal examination
She is agreeable to be evaluated by GI and if she needs colonoscopy, GI recommended OP follow up after recovering from chest infection.
Consulted GI, appreciate input
#Positive troponin 0.66 with no increment. No chest pain. Suspect of no clinical significance. No chest pain. Ordered EKG and echocardiogram.
Echo showed LVEF 55 to 60%. Normal diastolic function. Mild mitral regurgitation, mild aortic stenosis, no wall motion abnormalities.
# Chronic medical history of:
GERD
Hypothyroidism
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
depression
essential hypertension
hypokalemia
chronic kidney disease
dilation of aorta
wisdom teeth extraction
Cholecystectomy
hysterectomy
bunionectomy
cataract 2x
mohs surgery
Continue home meds for these
Code: DNR
SCD for DVTP
Total time spent to see the patient, examine the patient, review data and lab results, discuss treatment plan with patient and nursing staff around 55 minutes
Anticipated Discharge: Within 24 hours
Subjective/Interval History
-
Date of Service: November 28, 2024
Still cough
No hypoxia or sob
Objective Data
-
Labs:
Laboratory Results
11/28/24
07:04
WBC 9.0
Hgb 8.9 L D
Hct 30.4 L
Plt Count 247
Sodium 136
Potassium 4.4
Chloride 98
Carbon Dioxide 26
BUN 15
Creatinine 0.7
Glucose 129 H
Calcium 9.4
Vital Signs:
Vital Signs
Temp Pulse Resp BP Pulse Ox
97.8 F 71 18 135/75 97
11/28/24 11:02 11/28/24 11:02 11/28/24 11:02 11/28/24 11:02 11/28/24 11:02
I&O
11/27/24 11/28/24 11/29/24
06:59 06:59 06:59
Intake Total 730 / 730 1100 / 1100 240 / 240
Balance 730 / 730 1100 / 1100 240 / 240
--- NOTE | 2024-11-28 12:08 | PN.CDI ---
Addendum entered and electronically signed by Girish Hamilton MD 11/28/24 12:55:
Unable to determine
Original Note:
CDI
- -
CDI:
Physician Documentation Request
Admit Date: 11/26/24 14:06
Dear Doctor Castro,
Please review the following and provide your response in the progress notes.
Clinical Indicators:
Pt admitted with acute bronchitis and suspected chronic blood loss anemia.
2/3 Progress note: ' Chronic medical history of: chroni kidney disease'
Laboratory Tests
11/26/24 11/27/24 11/28/24
12:45 05:32 07:04
Creatinine 0.7 0.6 0.7
eGFR > 60.00 > 60.00 > 60.00
Clarify which of the following accurately represents the patient's renal status:
CKD, please provide stage - see criteria
Other
Unable to determine
Stages of Chronic Kidney Disease*
Level Description GFR
G1 Normal or High >90
G2 Mildly decreased 60-89
G3a Mildly to moderately decreased 45-59
G3b Moderately to severely decreased 30-44
G4 Severely decreased 15-29
G5 Kidney failure <15
Use of terms such as suspected, likely, concern for, or probable (associated with a specific diagnosis that is being evaluated, monitored, or treated as if it exists) are acceptable and can be coded in the inpatient setting, when documented at the
time of discharge.
Thank you,
Lisseth Kunz RN, BSN
CDI Specialist
[place] [facility]
Please use your independent medical judgment in providing your response.
*Source: Kidney Disease: Improving Global Outcomes (KDIGO) 2012
[2024-11-28] MEDS: FERRLECIT 110 MG IV (13:09)
[2024-11-28] MEDS: ZITHROMAX 500 MG PO (13:16)
[2024-11-28 15:05] VITALS: BP 124/74
[2024-11-28] MEDS: COLACE 100 MG PO (21:46)
[2024-11-28 23:02] VITALS: BP 187/90
[2024-11-28] MEDS: ULTRAM 50 MG PO (23:18)
[2024-11-29 00:43] VITALS: BP 169/90
[2024-11-29 06:00] VITALS: BMI 31.2
[2024-11-29] MEDS: SYNTHROID 75 MCG PO (06:26)
[2024-11-29 07:24] VITALS: BP 189/94
[2024-11-29] MEDS: PROTONIX 40 MG PO (07:35)
[2024-11-29] MEDS: KCL 10 MEQ PO (08:39)
[2024-11-29] MEDS: PROCARDIA XL (EXTENDED RELEASE) 30 MG PO (08:39)
[2024-11-29] MEDS: DELTASONE 30 MG PO (08:39)
[2024-11-29] MEDS: MUCINEX 600 MG PO (08:39)
[2024-11-29] MEDS: TENORMIN 75 MG PO (08:40)
[2024-11-29] MEDS: LIPITOR 10 MG PO (08:41)
[2024-11-29] MEDS: TYLENOL 650 MG PO (08:41)
[2024-11-29] MEDS: FLUAD (65 yr+) 2024-2025 FORMULA 0.5 ML IM (09:48)
--- NOTE | 2024-11-29 11:03 | W.PN.HOSP.TC ---
Today's Communication/Plan
-
DC
Recheck BP
Assessment / Plan
Assessment / Plan
Physical Exam
General: Well Developed, Well Nourished, No Apparent Distress, Comfortable and Conversant
HEENT: Moist mucous membranes, Atraumatic, Nose Appears Normal and Ears Appear Normal
Respiratory: no Wheezes and much less Rhonchi
Cardiac: S1/S2 and Regular Rhythm
GI: Soft, Non Tender and Non Distended
Musculoskeletal: No Clubbing, No Cyanosis, Edema, Left Lower Extremity and Edema, Right Lower Extremity
Skin: Warm and Dry
Neuro: Awake, Alert, Oriented and AO x 3
Psych: Calm
# Mild acute cough, likely acute bronchitis
No hypoxia
No fever
No leukocytosis. Okay to do short course, 3 days of Zithromax. Change to oral. Continue with the Mucinex continue as needed DuoNeb.
Chest radiography with no evidence of pneumonia or pulmonary congestion.
CT chest no PNA
Taper oral prednisone.
She feels better now , no hypoxia, anxious to go home
# Suspect chronic blood loss anemia/iron deficiency anemia
Hemoglobin around 6 upon admission. History of recent hip replacement but no anemia or GI bleeding. Never had colonoscopy. She denied melena although she did not observe color of her stool. She reports nonspecific GI symptoms as early satiety,
nausea, postprandial abdominal discomfort but attributed that to her underlying diagnosis of irritable bowel syndrome
Status post 1 unit of tract transfusion. Started IV iron while in the hospital.
Positive occult blood in the stool upon rectal examination
She is agreeable to be evaluated by GI and if she needs colonoscopy, GI recommended OP follow up after recovering from chest infection.
Consulted GI, appreciate input
#Positive troponin 0.66 with no increment. No chest pain. Suspect of no clinical significance. No chest pain. Ordered EKG and echocardiogram.
Echo showed LVEF 55 to 60%. Normal diastolic function. Mild mitral regurgitation, mild aortic stenosis, no wall motion abnormalities.
# Primary HTN
Uncontrolled
Pt feels her blood pressure is uncontrolled due to hospitalization inability to sleep well. Her blood pressure improved after taking blood pressure medication. Will recheck
Patient does not like to make changes to her medication and would like to follow in the outpatient setting
# Chronic medical history of:
GERD
Hypothyroidism
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
depression
essential hypertension
hypokalemia
chronic kidney disease
dilation of aorta
wisdom teeth extraction
Cholecystectomy
hysterectomy
bunionectomy
cataract 2x
mohs surgery
Continue home meds for these
Code: DNR
SCD for DVTP
Total Discharge time spent to see the patient, examine the patient, review data and lab results, discuss discharge plan with patient and nursing staff around 65 minutes
Anticipated Discharge: Today
Subjective/Interval History
-
Date of Service: November 29, 2024
She is feeling better
Wants to go home
Objective Data
-
Vital Signs:
Vital Signs
Temp Pulse Resp BP Pulse Ox
97.6 F 62 16 189/94 97
11/29/24 07:24 11/29/24 07:24 11/29/24 07:24 11/29/24 07:24 11/29/24 07:24
I&O
11/28/24 11/29/24 11/30/24
06:59 06:59 06:59
Intake Total 1100 / 1100 900 / 900
Balance 1100 / 1100 900 / 900
[2024-11-29] MEDS: FERRLECIT 110 MG IV (12:55)
--- NOTE | 2024-11-29 13:42 | CM ---
Met with patient to obtain information for assessment. Patient stated that she lives alone in an apartment with her son and daughter in law across the street. She stated that they are very supportive. She described herself as independent with
bathing, dressing, all ADLs and personal care. She does use a walker at times. She can prepare meals, do laundry but she admitted to difficulty with specimen technician and cleaning. She stated that her daughter in law provides transportation to her
appointments and does her shopping as she has not been driving. She does have a car.
Patient denied DME.
Consult was received for VN. Patient stated that her preference would be, . Will make referral.
Patient has a prescription plan and uses, [facility] in [place] for all of her medications.
Patient's PCP is, Alexander Benitez.
Patient stated that her daughter in law will pick her up today to transport home.
Plan: Case management will continue to follow and assist with discharge planning. Home with VN.
--- NOTE | 2024-11-29 14:09 | W.DCSUMMARY ---
Discharge Summary
Discharge Data
Date of Admission: 11/26/24
Date of Discharge: 11/29/24
-
Pending Results: No
Hospital Course
84 years old female presented with cough, sinus congestion, history of fever at home. She reported that other family members had cold symptoms/flu. She did not have fevers in the hospital. Negative COVID and influenza screen, no leukocytosis.
No hypoxia. Chest imaging studies including CAT scan did not show pneumonia. She was given steroid and short course of Zithromax. Patient was diagnosed with acute bronchitis, likely viral. She was noted to have anemia with hemoglobin around 6.
She was seen by elementary school counselor for positive blood in stool. Patient was given 1 unit of transfusion and intravenous iron therapy. She did not have gastrointestinal symptoms. Hemoglobin stabilized around 8. She was able to tolerate diet. She
had mildly positive troponin, echocardiogram showed normal left ventricular ejection fraction of 55 to 60% with normal diastolic function, mild mitral regurgitation, mild aortic stenosis with no wall motion abnormalities. Patient did not have chest
pain. Intelligence Chief doctor recommended outpatient follow-up after recovering from chest infection. Patient remained hemodynamically stable. She was able to ambulate without dizziness or shortness of breath. Patient was discharged home in a
stable condition.
Discharge Plan
-
Patient Disposition: Home with Home Care
Discharge Diagnosis/Procedures: Viral bronchitis
You had chest imaging studies including CAT scan, no pneumonia seen. CAT scan of the chest showed large hiatal hernia and scattered areas of air trapping. Please follow-up with your primary care doctor. You did not have hypoxia.
Acute blood loss anemia with positive for blood in stool. You are seen by GI doctor. Recommended outpatient follow-up for further workup. You are given intravenous iron and 1 unit of blood transfusion.
Diet: As tolerated
Referrals:
Alexander Benitez DO [Family Provider] -
Angel Garcia MD [Active] - in two to four weeks
Prescriptions:
New
guaifenesin 600 mg Tablet Extended Release 12hr
600 mg PO Q12 Qty: 20 0RF
benzonatate 200 mg capsule
200 mg PO BID PRN (Reason: Cough) Qty: 20 0RF
prednisone 10 mg tablet
20 mg PO DAILY Qty: 7 0RF
Rx Instructions:
20 mg daily for 2 days then 10 mg daily for 3 days.
ferrous sulfate 325 mg (65 mg iron) tablet
325 mg PO DAILY Qty: 30 0RF
Continued
potassium chloride 10 MEQ capsule, extended release
10 meq PO DAILY
nifedipine 30 MG tablet extended release
30 mg PO DAILY
atenolol 25 MG tablet
75 mg PO DAILY
Benefiber Sugar Free (dextrin) 1 EACH powder in packet
1 ea PO DAILY
tramadol 50 mg Tablet
50 mg PO DAILYPRN PRN (Reason: moderate pain)
docusate sodium 100 mg Capsule
100 mg PO DAILY
levothyroxine [Synthroid] 75 mcg Tablet
75 mcg PO DAILY
pantoprazole 40 MG tablet,delayed release (DR/EC)
40 mg PO DAILY
lovastatin 40 mg Tablet
40 mg PO DAILY
acetaminophen 650 mg Tablet Extended Release
650 mg PO TID
Tylenol Cold and Flu Severe [id number] mg/15 mL Liquid
15 ml PO DAILYPRN PRN (Reason: cough)
Discharge Orders:
Discharge Patient (As Directed); Ordered 11/29/24
Ordered By: Girish Hamilton
Discharge Date and Time
Print Language: URDU
[2024-11-29 14:23] VITALS: BP 163/83
== END 2024-11-29 15:39 | disposition home health service (06) | DRG 202 ==
LOC: 3 WEST ACU 14:06
PROVIDERS: Emergency Medicine; Registered Nurse; ADMITTING PHYSICIAN Internal Medicine; ATTENDING PHYSICIAN Internal Medicine; EMERGENCY PHYSICIAN Emergency Medicine; FAMILY PHYSICIAN Family Medicine; OTHER PHYSICIAN Internal Medicine Gastroenterology
PROC: 30233N1 Transfusion of Nonautologous Red Blood Cells into Peripheral Vein, Percutaneous Approach (ICD-10-PCS; 2024-11-26)
DX: J20.8 Acute bronchitis due to other specified organisms (principal); D62 Acute posthemorrhagic anemia; K92.1 Melena; E03.9 Hypothyroidism, unspecified; E78.00 Pure hypercholesterolemia, unspecified; I12.9 Hypertensive chronic kidney disease with stage 1 through stage 4 chronic kidney disease, or unspecified chronic kidney disease; N18.9 Chronic kidney disease, unspecified; K21.9 Gastro-esophageal reflux disease without esophagitis; K58.2 Mixed irritable bowel syndrome; R79.89 Other specified abnormal findings of blood chemistry; F32.A Depression, unspecified; K44.9 Diaphragmatic hernia without obstruction or gangrene; Z96.641 Presence of right artificial hip joint; Z79.890 Hormone replacement therapy; Z79.82 Long term (current) use of aspirin; Z79.899 Other long term (current) drug therapy; Z66 Do not resuscitate; Z20.822 Contact with and (suspected) exposure to COVID-19
CPT/HCPCS: 71046; 71250; 80048; 80053; 82728; 83540; 83550; 84484; 85025; 85027; 85045; 86850; 86900; 86901; 86920; 87502; 87811; 90662; 93306; 94640; 99285; G0008; J2916; P9016

== ENCOUNTER 2025-03-06 15:00 | Emergency (ER) | payer OTHER, SELFPAY ==
[2025-03-06 15:04] VITALS: BP 191/111
[2025-03-06 15:26] LABS: % Basophils 0.3 % (0-2); % Eosinophils 1.7 % (0-6); % Immature Granulocytes 0.3 % (0-0.5); % Lymphocytes 42.6 % (20.5-51.1); % Monocytes 8.8 % (1.7-9.3); % Neutrophils 46.3 % (42.2-75.2); Absolute Eosinophils 0.1 10^3/uL (0-0.7); Absolute Lymphocytes 3.2 10^3/uL (1.2-3.4); Absolute Monocytes 0.7 10^3/uL (0.1-0.6); Absolute Neutrophils 3.5 10^3/uL (1.4-6.5); Hematocrit 41.7 % (37.0-47.0); Hemoglobin 13.7 g/dL (12.0-16.0); Mean Corp Hgb Conc. 32.9 g/dL (33.0-37.0); Mean Corpuscular Hgb 29.1 pg (27.0-31.0); Mean Corpuscular Volume 88.5 fL (81.0-99.0); Mean Platelet Volume 9.5 fL (7.4-10.4); Nucleated Red Blood Cells % 0 %; Platelet Count 237 10^3/uL (130-400); Red Blood Cell Count 4.71 10^6/uL (4.20-5.40); Red Cell Dist. Width 16.3 % (11.5-14.5); White Blood Cell Count 7.6 10^3/uL (4.8-10.8)
[2025-03-06 15:42] LABS: ALT (SGPT) 16 U/L (0-35); AST (SGOT) 23 U/L (14-36); Albumin 4.3 g/dl (3.5-5.0); Alkaline Phosphatase 71 U/L (38-126); Blood Urea Nitrogen 17 mg/dl (7-17); Calcium 9.9 mg/dl (8.4-10.2); Carbon Dioxide 29 mmol/L (22-30); Chloride 104 mmol/L (98-107); Glucose 122 mg/dl (70-99); Potassium 4.6 mmol/L (3.5-5.1); Sodium 137 mmol/L (135-145); Total Bilirubin 0.7 mg/dl (0.2-1.3); Total Protein 7.5 g/dl (6.3-8.2); eGFR > 60.00
[2025-03-06 17:59] VITALS: BMI 28.6
[2025-03-06 18:00] VITALS: BP 211/82
[2025-03-06 18:30] VITALS: BP 194/94
[2025-03-06 19:00] VITALS: BP 190/83
--- NOTE | 2025-03-06 19:30 | ED.GENMED ---
History of Present Illness
General
Chief Complaint: Blood Pressure Problem
Source: patient and family
Exam Limitations: none
Time Seen by Provider: 03/06/25 19:20
Nursing documentation reviewed up to this point in time: agreed with
History of Present Illness
History of Present Illness:
84-year-old female presents emergency department due to elevated blood pressure, and fullness in head. This began earlier today. She denies any chest pain, but states she has had increased swelling in her legs. she has a history of lymphedema.
She denies chest pain. She denies weakness.
Past History
Past History
ED Past Medical History: GERD, HTN, Hypercholesterolemia, Hypothyroidism and Other (Lymphedema); Negative IDDM or NIDDM
ED Past Surgical History: Cholecystectomy, Gynecological (Hysterectomy) and Orthopedic (Right total hip replacement May 2024)
Social History
Tobacco: Non-smoker
Alcohol: None
Drug: None
Personal:
Living: alone
Employment: Retired
Family History
Family History: Other (Father with [place] at 54 mother with coronary disease at 78)
Review of Systems
Review of Systems
Allergies reviewed?: Yes
All Other Systems: Not applicable
Constitutional: Reports no symptoms
EENT: Reports no symptoms
Respiratory: Reports no symptoms
Cardiac: Reports no symptoms
ABD/GI: Reports no symptoms
: Reports no symptoms
Musculoskeletal: Reports edema
Skin: Reports no symptoms
Neurological: Reports headache
Endocrine: Reports no symptoms
Hematologic/Lymphatic: Reports no symptoms
Psychiatric: Reports no symptoms
Phy Exam
Physical Exam
Physical Exam:
Physical Exam
General: no apparent distress, not acutely ill
Neck: supple. no meningeal signs. normal posterior pharynx
Heart: s1/s2 regular rate and rhythm, no murmur. equal radial
pulses.
HEENT: Pupils equal round reactive to light, EOMI
Lungs: no acute respiratory distress. clear bilaterally
Abdomen: normal bowel sounds. not tender. no CVAT
Neuro: alert and oriented. no focal neurological deficits cranial nerves II through XII intact
Skin: no rash
Psychiatric: well kept. interactive and cooperative
Extremities: no edema. no calf tenderness. negative homans. good distal pulses
Course
Orders/Labs/Results
Orders:
Orders
03/06/25 15:14
Complete Blood Count/With Diff Urgent
Comprehensive Metabolic Panel Urgent
03/06/25 19:29
CR Chest - 2 Views Urgent
Comment:
Reason For Exam: weight gain, edema
03/06/25 19:30
CT Head W/o Iv Contrast Urgent
Comment:
Reason For Exam: headache
03/06/25 20:05
NT-proBNP Urgent
Troponin I Urgent
Abnormal Lab Results
03/06/25
15:14
MCHC 32.9 L g/dL
(33.0-37.0)
RDW 16.3 H %
(11.5-14.5)
Absolute Monos (auto) 0.7 H 10^3/uL
(0.1-0.6)
Glucose 122 H mg/dl
(70-99)
03/06/25 15:14
03/06/25 15:14
Vital Signs
Initial and Last Documented VS:
Initial Vital Signs
Temp Pulse Resp BP Pulse Ox
98.1 F 82 18 191/111 98
03/06/25 15:04 03/06/25 15:04 03/06/25 15:04 03/06/25 15:04 03/06/25 15:04
Last Documented Vital Signs
Temp Pulse Resp BP Pulse Ox
98.1 F 66 15 194/94 100
03/06/25 15:04 03/06/25 18:00 03/06/25 18:00 03/06/25 18:30 03/06/25 18:30
MDM/Problems Addressed
Differential Diagnosis Includes:
Intracranial hemorrhage, hypertensive urgency
MDM/Problems Addressed:
84-year-old female with elevated blood pressure, improved after observation. CT head normal. Normal neurologic exam. Stable for discharge. Follow-up with primary care.
Chronic conditions affecting care: HTN
Acute Exacerbation and/or Progression of Chronic Illness: HTN
*Radiology
Radiology exam reviewed: preliminary read by ED provider (Chest x-ray no acute findings) and radiology read reviewed (CT head no acute finding)
*Pulse Oximetry
Patient hypoxic: no
*It Systems Analyst Interpretation
Rate: normal
Interpretation: normal
Heart Rate: 68
Rhythm: sinus
*Critical Care Note
Total Time (30-74mins, 75-104mins- exclusive of procedures): Not Applicable
Patient Management
Social determinants of health affecting care: Living situation and Strong social support
Escalation/DeEscalation of care consider admission/obs:
admit not indicated
ED Attending Note
-
Portions of this chart may have been created with voice recognition software.� Occasional wrong word or��sound alike� substitutions may have occurred due to the inherent limitations of voice recognition software.
Discharge Plan
Departure
Patient Disposition: Home (Routine Discharge)
Date of Disposition: 03/06/25
Time of Disposition: 21:06
Patient with high blood pressure during this ER visit?: Yes
Condition: Good
Discharge Problem:
Headache
Instructions: High Blood Pressure (DC), Headaches in adults, BLOOD PRESSURE
Prescriptions:
No Action
potassium chloride 10 MEQ capsule, extended release
10 meq PO DAILY
nifedipine 30 MG tablet extended release
30 mg PO DAILY
atenolol 25 MG tablet
75 mg PO DAILY
Benefiber Sugar Free (dextrin) 1 EACH powder in packet
1 ea PO DAILY
tramadol 50 mg Tablet
50 mg PO DAILYPRN PRN (Reason: moderate pain)
docusate sodium 100 mg Capsule
100 mg PO DAILY
levothyroxine [Synthroid] 75 mcg Tablet
75 mcg PO DAILY
pantoprazole 40 MG tablet,delayed release (DR/EC)
40 mg PO DAILY
lovastatin 40 mg Tablet
40 mg PO DAILY
acetaminophen 650 mg Tablet Extended Release
650 mg PO TID
Tylenol Cold and Flu Severe [id number] mg/15 mL Liquid
15 ml PO DAILYPRN PRN (Reason: cough)
guaifenesin 600 mg Tablet Extended Release 12hr
600 mg PO Q12 Qty: 20 0RF
benzonatate 200 mg capsule
200 mg PO BID PRN (Reason: Cough) Qty: 20 0RF
prednisone 10 mg tablet
20 mg PO DAILY Qty: 7 0RF
Rx Instructions:
20 mg daily for 2 days then 10 mg daily for 3 days.
ferrous sulfate 325 mg (65 mg iron) tablet
325 mg PO DAILY Qty: 30 0RF
Referrals:
UNKNOWN - PT DOES,NOT KNOW [Family Provider] -
Interventions
Interventions:
*Risk Screen - Suicide Last Done: 03/06/25 15:04
*General Assessment Last Done: 03/06/25 15:04
*ED COVID-19 Vaccine History Last Done: 03/06/25 15:04
ED- Neurological Assessment Last Done: 03/06/25 18:01
ED- Pulmonary Assessment Last Done: 03/06/25 18:01
Discharge Date and Time
Print Language: YI
[2025-03-06 20:00] VITALS: BP 179/86
[2025-03-06 20:43] LABS: NT-proBNP 203 pg/ml; Troponin I < 0.012 ng/ml
[2025-03-06 21:00] VITALS: BP 153/75
== END 2025-03-06 21:33 | disposition home or self-care (01) ==
LOC: EMR 15:00
PROVIDERS: Student in an Organized Health Care Education/Training Program; EMERGENCY PHYSICIAN Emergency Medicine; FAMILY PHYSICIAN Family Medicine
DX: R51.9 Headache, unspecified (principal); I10 Essential (primary) hypertension; R22.42 Localized swelling, mass and lump, left lower limb; I89.0 Lymphedema, not elsewhere classified; K21.9 Gastro-esophageal reflux disease without esophagitis; E78.00 Pure hypercholesterolemia, unspecified; E03.9 Hypothyroidism, unspecified; Z82.49 Family history of ischemic heart disease and other diseases of the circulatory system; Z90.49 Acquired absence of other specified parts of digestive tract; Z90.710 Acquired absence of both cervix and uterus
CPT/HCPCS: 99284; 70450; 71046; 80053; 83880; 84484; 85025